=== PATIENT | male | born 1960 | race Caucasian/White ===

== ENCOUNTER → 2016-12-01 | Outpatient (CLI) | payer MEDICARE, OTHER ==
[~2016-12-01] MED LIST: ALBUTEROL0.63 MG/3 INH; AZITHROMYCIN250 MG PO; HABITROL 21 MG P1 EA TD; IBUPROFEN800 MG PO; LEXAPRO10 MG PO; LISINOPRIL10 MG PO; METOPROLOL TART25 MG PO; NITROLINGUAL12 GM SL; NORVASC 5 MG TAB5 MG PO; SUBOXONE 8 MG-1 EACH SL; ZYRTEC10 MG PO
== END ==
LOC: KOH-I 10:54
DX: R06.02 Shortness of breath (principal)
CPT/HCPCS: 71020

== ENCOUNTER 2016-12-12 21:42 | Observation (INO) | payer MEDICARE, OTHER ==
[~2016-12-12] VITALS: Ht 167.6 cm; Wt 74.8 kg
[2016-12-13 00:18] LABS: HEMOGLOBIN 11.8 gm/dl (14.0-17.5); RED BLOOD COUNT 3.96 M/UL (4.20-5.50); WHITE BLOOD COUNT 10.9 K/UL (4.5-11.0)
[2016-12-13] MEDS ORDERED: IBUPROFEN800 MG PO (10:07)
[2016-12-13] MEDS ORDERED: SUBOXONE 8 MG-1 EACH SL (10:08)
[2016-12-13] MEDS ORDERED: LISINOPRIL10 MG PO (10:08)
[2016-12-13] MEDS ORDERED: ZYRTEC10 MG PO (10:08)
[2016-12-13] MEDS ORDERED: METOPROLOL TART25 MG PO (10:09)
[2016-12-13] MEDS ORDERED: NITROLINGUAL12 GM SL (10:10)
[2016-12-14 06:31] LABS: HEMOGLOBIN 10.2 gm/dl (14.0-17.5); WHITE BLOOD COUNT 9.4 K/UL (4.5-11.0)
[2016-12-14 06:37] LABS: RED BLOOD COUNT 3.44 M/UL (4.20-5.50)
[2016-12-14 07:16] LABS: BUN/CREATININE RATIO 23 (0-10)
[2016-12-14] MEDS ORDERED: LEXAPRO10 MG PO (10:47)
[2016-12-14] MEDS ORDERED: NORVASC 5 MG TAB5 MG PO (10:47)
[2016-12-14] MEDS ORDERED: AZITHROMYCIN250 MG PO (10:48)
[2016-12-14] MEDS ORDERED: HABITROL 21 MG P1 EA TD (10:49)
[2016-12-14] MEDS ORDERED: ALBUTEROL0.63 MG/3 INH (10:50)
== END 2016-12-14 14:15 | disposition home or self-care (01) ==
LOC: ER1 21:42 → ZEROF 12-13 04:00 → M/S 12-13 11:49
PROVIDERS: Family Medicine; ADMIT Emergency Medicine
DX: N17.9 Acute kidney failure, unspecified (principal); E86.0 Dehydration; E87.1 Hypo-osmolality and hyponatremia; I10 Essential (primary) hypertension; E87.5 Hyperkalemia; F41.8 Other specified anxiety disorders; M19.90 Unspecified osteoarthritis, unspecified site; G89.29 Other chronic pain; I25.10 Atherosclerotic heart disease of native coronary artery without angina pectoris; N40.0 Benign prostatic hyperplasia without lower urinary tract symptoms; G47.00 Insomnia, unspecified; F17.210 Nicotine dependence, cigarettes, uncomplicated; Z95.1 Presence of aortocoronary bypass graft; Z85.038 Personal history of other malignant neoplasm of large intestine; Z88.1 Allergy status to other antibiotic agents; Z88.6 Allergy status to analgesic agent; Z79.899 Other long term (current) drug therapy
CPT/HCPCS: 36415; 70450; 71020; 80048; 80053; 82550; 82553; 83874; 84484; 85025; 85027; 93005; 96361; 96374; 96375; 99285; G0378; G0480; J1815; J7030

== ENCOUNTER 2021-01-20 15:40 | Emergency (ER) | payer MEDICARE, OTHER ==
[~2021-01-20 15:40] MED LIST changes: +AUGMENTIN 875-1 EACH PO; +BACTROBAN OINT22 GM EXT; +CATAPRES0.1 MG PO; +IBUPROFEN600 MG PO; +KEPPRA500 MG PO; -LEXAPRO10 MG PO; +LEXAPRO20 MG PO; +NEURONTIN 300300 MG PO; +VITAMIN D31000 UNI1 PO
[2021-01-20] MEDS ORDERED: PENVEE K 500 M500 MG PO (16:58)
[2021-01-20] MEDS ORDERED: IBU800 MG PO (16:58)
[2021-01-20] MEDS ORDERED: LIDOCAINE HCL10 ML MM (16:58)
== END 2021-01-20 16:23 | disposition home or self-care (01) ==
LOC: ER1 15:40
DX: K02.9 Dental caries, unspecified (principal); K04.01 Reversible pulpitis; R00.1 Bradycardia, unspecified; E78.5 Hyperlipidemia, unspecified; I10 Essential (primary) hypertension; F17.210 Nicotine dependence, cigarettes, uncomplicated; Z87.442 Personal history of urinary calculi; Z88.1 Allergy status to other antibiotic agents; Z88.5 Allergy status to narcotic agent; Z79.899 Other long term (current) drug therapy
CPT/HCPCS: 99282

== ENCOUNTER 2021-04-15 19:49 | Emergency (ER) | payer MEDICARE, OTHER ==
[~2021-04-15 19:49] MED LIST changes: +IBU800 MG PO; +LIDOCAINE HCL10 ML MM; +PENVEE K 500 M500 MG PO
== END 2021-04-16 00:25 | disposition home or self-care (01) ==
LOC: ER1 19:49
DX: R20.2 Paresthesia of skin (principal); I51.9 Heart disease, unspecified; F17.210 Nicotine dependence, cigarettes, uncomplicated; Z85.038 Personal history of other malignant neoplasm of large intestine
CPT/HCPCS: 70450; 71045; 72125; 73030; 93005; 99284

== ENCOUNTER 2021-05-10 14:33 | Inpatient (IN) | payer MEDICARE, OTHER ==
[~2021-05-10] VITALS: Ht 167.6 cm; Wt 55.8 kg
[~2021-05-10 14:33] MED LIST changes: +CATAPRES 0.1MG0.1 MG PO; -CATAPRES0.1 MG PO; +DRISDOL1250 MCG PO; -VITAMIN D31000 UNI1 PO
[2021-05-10 15:48] LABS: HEMOGLOBIN 13.8 gm/dl (14.0-17.5); RED BLOOD COUNT 4.51 M/UL (4.20-5.50)
[2021-05-10] MEDS ORDERED: LISINOPRIL40 MG PO (18:23)
[2021-05-10] MEDS ORDERED: DILTIAZEM ER420 MG PO (18:24)
[2021-05-10] MEDS ORDERED: ISOSORBIDE MONO60 MG PO (18:24)
[2021-05-10] MEDS ORDERED: IBUPROFEN200 MG PO (18:25)
[2021-05-11 03:04] LABS: WHITE BLOOD COUNT 6.9 K/UL (4.5-11.0)
[2021-05-11 03:10] LABS: HEMOGLOBIN 11.8 gm/dl (14.0-17.5); RED BLOOD COUNT 3.88 M/UL (4.20-5.50)
[2021-05-11 03:32] LABS: BUN/CREATININE RATIO 11 (0-10)
--- NOTE | 2021-05-11 10:34 | NUR ---
informed dr. miles of dr. cole ordered r/t blood pressure. informed of patient b/p and dr. miles acknoweldged
--- NOTE | 2021-05-11 17:05 | NUR ---
notified dr. miles from [facility] department of [facility] result
--- NOTE | 2021-05-11 18:32 | NUR ---
informed dr. miles with his medical student r/t ct angiogram of the neck and acknowleged
[2021-05-11] MEDS ORDERED: HYDRALAZINE HCL50 MG PO (19:27)
[2021-05-11] MEDS ORDERED: ATORVASTATIN CA20 MG PO (19:27)
[2021-05-11] MEDS ORDERED: DILTIAZEM 24HR180 M1 PO (19:27)
[2021-05-11] MEDS ORDERED: PLAVIX75 MG PO (19:27)
[2021-05-11] MEDS ORDERED: ASPIRIN EC81 MG PO (21:14)
== END 2021-05-11 20:53 | disposition short-term general hospital (02) | DRG 66 ==
LOC: ER1 14:33 → CDU 17:27 → M/S 17:27
PROVIDERS: Emergency Medicine; Physician Assistant; ADMIT Internal Medicine
PROC: B24BZZ4 Ultrasonography of Heart with Aorta, Transesophageal (ICD-10-PCS; principal; 2021-05-11)
DX: I63.49 Cerebral infarction due to embolism of other cerebral artery (principal); I16.0 Hypertensive urgency; G83.21 Monoplegia of upper limb affecting right dominant side; Z20.822 Contact with and (suspected) exposure to COVID-19; I10 Essential (primary) hypertension; N40.0 Benign prostatic hyperplasia without lower urinary tract symptoms; R47.81 Slurred speech; I08.3 Combined rheumatic disorders of mitral, aortic and tricuspid valves; G93.89 Other specified disorders of brain; R29.701 NIHSS score 1; R29.810 Facial weakness; F17.210 Nicotine dependence, cigarettes, uncomplicated; G31.89 Other specified degenerative diseases of nervous system; E78.5 Hyperlipidemia, unspecified; I25.10 Atherosclerotic heart disease of native coronary artery without angina pectoris; Z95.1 Presence of aortocoronary bypass graft; Z85.038 Personal history of other malignant neoplasm of large intestine; Z79.82 Long term (current) use of aspirin; Z90.49 Acquired absence of other specified parts of digestive tract; Z88.1 Allergy status to other antibiotic agents; Z88.5 Allergy status to narcotic agent
CPT/HCPCS: ECHO; 36415; 70450; 70496; 70498; 70551; 71045; 73502; 80048; 80053; 82550; 82553; 83735; 83874; 83880; 84100; 84484; 85025; 85610; 85730; 92610; 93306; 93880; 96365; 97112; 97163; 97166; 99285; J0360; J3480; Q9967; U0002

== ENCOUNTER 2021-07-25 17:19 | Emergency (ER) | payer MEDICARE, OTHER ==
[~2021-07-25 17:19] MED LIST changes: +ASPIRIN EC81 MG PO; +ATORVASTATIN CA20 MG PO; +BUPRENORPHIN-N1 EACH PO; +DILTIAZEM 24HR180 M1 PO; +DILTIAZEM ER420 MG PO; +HYDRALAZINE HCL50 MG PO; +IBUPROFEN200 MG PO; +ISOSORBIDE MONO60 MG PO; +PLAVIX75 MG PO; -SUBOXONE 8 MG-1 EACH SL
[2021-07-25 19:47] LABS: HEMOGLOBIN 9.8 gm/dl (14.0-17.5); RED BLOOD COUNT 3.34 M/UL (4.20-5.50); WHITE BLOOD COUNT 7.7 K/UL (4.5-11.0)
[2021-07-25 20:16] LABS: BUN/CREATININE RATIO 19 (0-10)
[2021-07-26] MEDS ORDERED: BACLOFEN10 MG PO (16:08)
[2021-07-26] MEDS ORDERED: HYDRALAZINE HC100 MG PO (16:08)
[2021-07-26] MEDS ORDERED: AMLODIPINE BESYL5 MG PO (16:09)
[2021-07-26] MEDS ORDERED: CARVEDILOL12.5 MG PO (16:09)
[2021-07-26] MEDS ORDERED: NICOTINE TOP (16:10)
[2021-07-26] MEDS ORDERED: KLONOPIN TAB 00.5 MG PO (16:10)
[2021-07-26] MEDS ORDERED: ELIQUIS 2.5 MG2.5 MG PO (16:10)
[2021-07-26] MEDS ORDERED: FLOMAX 0.4 MG0.4 MG PO (16:10)
[2021-07-26] MEDS ORDERED: ATORVASTATIN CA80 MG PO (16:12)
[2021-07-26] MEDS ORDERED: TYLENOL325 MG PO (16:13)
[2021-07-26] MEDS ORDERED: MIRALAX17 GM PO (16:14)
[2021-07-26] MEDS ORDERED: SENNA PLUS 8.61 EACH PO (16:14)
[2021-07-28 23:27] LABS: BUN/CREATININE RATIO 24 (0-10)
== END 2021-07-29 17:30 | disposition home or self-care (01) ==
LOC: ER1 17:19
PROVIDERS: Emergency Medicine
DX: R53.1 Weakness (principal); G89.29 Other chronic pain; I25.10 Atherosclerotic heart disease of native coronary artery without angina pectoris; F17.200 Nicotine dependence, unspecified, uncomplicated; Z99.3 Dependence on wheelchair; Z95.1 Presence of aortocoronary bypass graft; Z20.822 Contact with and (suspected) exposure to COVID-19
CPT/HCPCS: 12001; 80053; 83735; 85025; 97110-GP-CQ; 97116-GP-CQ; 97161; 97166; 97530; 97530-GP-CQ; 99285; U0002